=== PATIENT | male | born 1985 ===

== ENCOUNTER → 2022-07-17 | Outpatient (CLI) | payer OTHER ==
--- NOTE | 2022-07-17 16:18 | XR ---
EXAMINATION TYPE: XR hand complete LT DATE OF EXAM: 07/17/2022 4:10 PM INDICATION: Patient age:Male; 37 years old; Reason for study: S61.402A UNSPECIFIED OPEN WOUND OF LEFT HAND, INIT; COMPARISON: None TECHNIQUE: Frontal, lateral and oblique views of the left hand were obtained. FINDINGS: Normal alignment of the visualized joints. No acute osseous pathology is identified. No e vidence of soft tissue swelling. No radiopaque foreign body. IMPRESSION: 1. No acute osseous pathology. 2. No radiopaque foreign body.
== END | disposition home or self-care (01) ==
LOC: RADXRMAIN 15:57
PROVIDERS: ATTEND Emergency Medicine
DX: S61.402A Unspecified open wound of left hand, initial encounter (principal); X58.XXXA Exposure to other specified factors, initial encounter